=== PATIENT | female | born 1995 | race Caucasian/White ===

== ENCOUNTER 2018-07-30 15:31 | Emergency (ER) | payer OTHER ==
[2018-07-30 15:51] VITALS: BP 119/75; PULSE 94; TEMP 97.9; BMI 23.8
[2018-07-30] MEDS ORDERED: IBUPROFEN 400 MG TABLET (FP) PO ONE ×2 (15:54→16:28)
--- NOTE | 2018-07-30 15:54 | PDOC ---
Rapid Medical Evaluation Chief Complaint: Pain Time Seen by Provider: 07/30/18 15:50 Medical Evaluation: 07/30/18 15:50 I have performed a brief in-person evaluation of this patient. The patient presents with a chief complaint of: h/o PCOS presenting with complains cramping pains for 2 hours. Patient on menses now which started today. Called [facility] AUDITOR who advised her come to ED if persistent pain Pertinent physical exam findings: Patient hold lower abdomen in discomfort I have ordered the following: motrin 800mg PO. pelvic US The patient will proceed to the ED for further evaluation. Discharge Disposition - Diagnosis Dysmenorrhea Abdominal pain Qualifiers: Abdominal location: lower abdomen, unspecified Qualified Code(s): R10.30 - Lower abdominal pain, unspecified - Discharge Dispostion Condition at time of disposition: Stable - Referrals - Patient Instructions - Post Discharge Activity
--- NOTE | 2018-07-30 16:45 | PDOC ---
History of Present Illness - General Chief Complaint: Pain Stated Complaint: PELVIC PAIN/ PCOS Time Seen by Provider: 07/30/18 15:50 History Source: Patient Exam Limitations: No Limitations - History of Present Illness Travel History: No Initial Comments: 07/30/18 17:11 23-year-old female with history of PCO S presents the ED with complaints of lower abdominal crampy for the past 3 days without vaginal bleeding dysuria fever or chills. Patient denies nausea, change in bowel pattern and states takes metformin as prescribed for PCO S. Timing/Duration: reports: intermittent Quality: reports: mild, cramping Abdominal Pain Onset Location: reports: suprapubic Pain Radiation: reports: no radiation Activities at Onset: reports: none Aggravating Factors: improves with: None Alleviating Factors: improves with: None Past History - Travel Traveled outside of the country in the last 30 days: No Close contact w/someone who was outside of country & ill: No - Past Medical History Allergies/Adverse Reactions: Allergies Allergy/AdvReac Type Severity Reaction Status Date / Time No Known Allergies Allergy Verified 07/30/18 15:51 Home Medications: Ambulatory Orders Ibuprofen [Motrin -] 600 mg PO TID PRN #21 tablet 07/30/18 COPD: No Other medical history: PCOS - Suicide/Smoking/Psychosocial Hx Smoking History: Current every day smoker Number of Cigarettes Smoked Daily: 6 Information on smoking cessation initiated: No Hx Alcohol Use: Yes Drug/Substance Use Hx: No Patient Lives Alone: No Lives with/in: parents Review of Systems - Review of Systems Able to Perform ROS?: Yes Constitutional: No: Symptoms Reported HEENTM: No: Symptoms Reported Respiratory: No: Symptoms reported Cardiac (ROS): No: Symptoms Reported ABD/GI: Yes: Abdominal cramping : No: Symptoms Reported Musculoskeletal: No: Symptoms Reported Integumentary: No: Symptoms Reported Neurological: No: Symptoms reported Endocrine: No: Symptoms Reported Hematologic/Lymphatic: No: Symptoms Reported *Physical Exam - Vital Signs Last Vital Signs Temp Pulse Resp BP Pulse Ox 97.9 F 94 H 16 119/75 100 07/30/18 15:48 07/30/18 15:48 07/30/18 15:48 07/30/18 15:48 07/30/18 15:48 - Physical Exam General Appearance: Yes: Nourished, Appropriately Dressed. No: Apparent Distress HEENT: negative: Pale Conjunctivae Female Pelvic Exam: positive: cervical os closed, vaginal bleeding (dark red scant). negative: CMT, adnexal tenderness Gastrointestinal/Abdominal: positive: Soft, Tenderness (mild mid suprapubic) Musculoskeletal: negative: CVA Tenderness Extremity: positive: Normal Inspection Integumentary: positive: Normal Color, Warm, Moist Neurologic: positive: Motor Strength 5/5 (ambulatory) ED Treatment Course - Medications Given in the ED: ED Medications Discontinued Medications Generic Name Dose Route Start Last Admin Trade Name Freq PRN Reason Stop Dose Admin Ibuprofen 800 mg 07/30/18 15:54 07/30/18 16:35 Motrin - PO 07/30/18 15:55 800 mg ONCE ONE Administration Medical Decision Making - Medical Decision Making 07/30/18 17:08 Complaint: Lower abdominal cramping for the past day without aggravating or alleviating factors. Patient with history of PCO S Exam. Patient with mild mid superpubic tenderness currently menstruation Plan. Urinalysis urine Motrin and ultrasound ordered 07/30/18 18:27 Ultrasound shows a uterus is anteverted measuring 7 x 3.2 inside on AP dimension with homogenic echotexture. Endometrial stripe 5 mm in thickness. The right oh ovary with tiny simple cyst/follicles and normal vascular flow arterial and venous. Left ovary measuring 2.5 x 2 cm with few tiny simple cysts follicles and normal vascular flow arterial and venous. There is no free fluid in the cul-de-sac. Patient states is feeling better will be discharged home. *DC/Admit/Observation/Transfer Diagnosis at time of Disposition: Dysmenorrhea, PCOS (polycystic ovarian syndrome) Abdominal pain Qualifiers: Abdominal location: lower abdomen, unspecified Qualified Code(s): R10.30 - Lower abdominal pain, unspecified - Discharge Dispostion Disposition: HOME Condition at time of disposition: Improved - Referrals Referrals: Gris Marshall [Primary Care Provider] - Zackery Lala MD [Staff Physician] - - Patient Instructions Printed Discharge Instructions: Polycystic Ovary Syndrome (Alternative Therapy) Additional Instructions: At this time your ultrasound and urine were negative except for findings of PCO S. I recommend at this time to follow-up with your [facility] doctor Spike. You may take Motrin 600 mg or 975 of Tylenol every 6-8 hours for pain. - Post Discharge Activity
[2018-07-30 18:34] LABS: EPI CELLS 9.4 /HPF (0-5/HPF); PH,URINE >= 9.0 (5.0-8.0); URINE APPEARANCE CLOUDY; URINE BILIRUBIN NEGATIVE (NEGATIVE); URINE CASTS 3 /lpf (0-8); URINE COLOR YELLOW; URINE GLUCOSE (UA) NEGATIVE (NEGATIVE); URINE KETONE NEGATIVE (NEGATIVE); URINE LEUK ESTERASE NEGATIVE (NEGATIVE); URINE NITRITE NEGATIVE (NEGATIVE); URINE PROTEIN NEGATIVE (NEGATIVE); URINE RBC 14 /hpf (0-4); URINE UROBILINOGEN 0.2 mg/dL (0.2-1.0); URINE WBC 1 /hpf (0-5)
[2018-07-30 18:52] LABS: HCG,QUALITATIVE URINE NEGATIVE
== END 2018-07-30 18:40 | disposition home or self-care (01) ==
LOC: JER 15:31
DX: N94.6 Dysmenorrhea, unspecified (principal); E28.2 Polycystic ovarian syndrome
CPT/HCPCS: 76856-TC; 81003; 84703; 87086; 99282-25